=== PATIENT | female | born 1980 | race American Indian/Alaskan Native ===

== ENCOUNTER 2018-01-19 19:10 | Emergency (ER) | payer MEDICAID, OTHER ==
[2018-01-19 19:59] VITALS: BP 108/68; PULSE 72; RESP 18; TEMP 98.2; O2SAT 100
--- NOTE | 2018-01-19 20:07 | ED PDOC ---
Lower Extremity Pain/Injury Time Seen by Provider: 01/19/18 20:04 Chief Complaint (Nursing): Lower Extremity Problem/Injury Chief Complaint (Provider): knee pain History Per: Patient (37 y/o female here with right knee ongoing x 2 weeks noted with walking. Denies any falls/twisting injury. Denies any h/o knee injury. Did not take any medications prior to ED arrival. States she drives a lot for work.) Past Medical History Reviewed: Historical Data, Nursing Documentation, Vital Signs Vital Signs: Last Vital Signs Temp 98.2 F 01/19/18 19:57 Pulse 72 01/19/18 19:57 Resp 18 01/19/18 19:57 BP 108/68 01/19/18 19:57 Pulse Ox 100 01/19/18 19:57 - Family History Family History: States: No Known Family Hx - Home Medications Home Medications: Ambulatory Orders Medication Instructions Recorded Ibuprofen [Motrin Tab] 600 mg PO Q8H PRN #20 tab 05/27/14 Oxycodone HCl/Acetaminophen 1 tab PO Q6H PRN #15 tab 05/27/14 [Percocet 325 mg-5 mg] DiphenhydrAMINE [Benadryl] 50 mg PO Q6H #20 cap 11/10/15 Famotidine [Pepcid] 20 mg PO BID #20 tab 11/10/15 Prednisone 50 mg PO DAILY #4 tablet 11/10/15 Naproxen 375 mg PO Q8 PRN #21 tablet 01/19/18 - Allergies Allergies/Adverse Reactions: Allergies Allergy/AdvReac Type Severity Reaction Status Date / Time No Known Allergies Allergy Verified 01/19/18 19:57 Review of Systems ROS Statement: Except As Marked, All Systems Reviewed And Found Negative Physical Exam - Reviewed Nursing Documentation Reviewed: Yes Vital Signs Reviewed: Yes - Physical Exam Appears: Positive for: Well, Non-toxic, No Acute Distress Head Exam: Positive for: ATRAUMATIC, NORMAL INSPECTION, NORMOCEPHALIC Skin: Positive for: Normal Color, Warm, DRY Eye Exam: Positive for: EOMI, Normal appearance, PERRL ENT: Positive for: Normal ENT Inspection Neck: Positive for: Normal, Painless ROM Cardiovascular/Chest: Positive for: Regular Rate, Rhythm Respiratory: Positive for: CNT, Normal Breath Sounds Gastrointestinal/Abdominal: Positive for: Normal Exam, Soft Back: Positive for: Normal Inspection Extremity: Positive for: Normal ROM, Other (nontender knee. minimal effusion noted. Able to flex and extend without difficulty.). Negative for: Calf Tenderness Neurologic/Psych: Positive for: Alert, Oriented - ECG O2 Sat by Pulse Oximetry: 100 - Progress ED Course And Treament: KNEE XRY: NO FX; NO EFFUSION PATIENT GIVEN KNEE IMMOBILIZER AND CRUTCH INSTRUCTIONS. Disposition - Clinical Impression Clinical Impression: Knee pain - Patient ED Disposition Is Patient to be Admitted: No - Disposition Referrals: Gunnar Jimenez III, MD [Staff Provider] - Disposition: Routine/Home Disposition Time: 20:42 Condition: FAIR Prescriptions: Naproxen 375 mg PO Q8 PRN #21 tablet PRN Reason: Pain, Moderate (4-7) Instructions: Knee Pain (DC) Forms: [facility] ED School/Work Excuse
--- NOTE | 2018-01-20 14:40 | RAD ---
Date of service: 01/19/2018 PROCEDURE: Right Knee Radiographs. HISTORY: knee injury COMPARISON: None. FINDINGS: BONES: Normal. No fracture. JOINTS: Normal. No osteoarthritis. JOINT EFFUSION: None. OTHER FINDINGS: None. IMPRESSION: Normal radiographs of the right knee.
== END 2018-01-19 21:13 | disposition home or self-care (01) ==
LOC: H.ER 19:10
DX: M25.561 Pain in right knee (principal)